=== PATIENT | male | born 1950 | race Hispanic/Latino ===

== ENCOUNTER 2024-03-12 15:26 | Emergency (ER) | payer OTHER, MEDICARE ==
[~2024-03-12] VITALS: Ht 172.7 cm; Wt 74.8 kg
[2024-03-12] MEDS ORDERED: IBUP-2077 PO (15:56)
[2024-03-12] MEDS ORDERED: AMOX1TAB16 PO (15:56)
[2024-03-12] MEDS: AMOX/CLAV 875/125MG TAB PO ONE (16:29)
[2024-03-12] MEDS: acetaMINOPHEN 500 MG TABLET PO ONE (16:35)
[2024-03-12] MEDS: teTANUS/diphthERIA TOXOID [ADULT] 0.5 ML VIAL IM ONE (16:36)
[2024-03-12 17:32] VITALS: BP 151/73; PULSE 78; RESP 18; TEMP 98.2; O2SAT 100
== END 2024-03-12 17:41 | disposition home or self-care (01) ==
LOC: EDH 15:26
DX: S81.852A Open bite, left lower leg, initial encounter (principal); W54.0XXA Bitten by dog, initial encounter; Y93.01 Activity, walking, marching and hiking; Y92.488 Other paved roadways as the place of occurrence of the external cause; Y99.8 Other external cause status
CPT/HCPCS: 90471; 90714